=== PATIENT | male | born 1970 | race African-American/Black ===

== ENCOUNTER 2017-01-31 11:23 | Emergency (ER) | payer OTHER ==
[~2017-01-31] VITALS: Ht 177.8 cm; Wt 75.7 kg
[2017-01-31 11:40] VITALS: BP 121/80
[2017-01-31] MEDS ORDERED: AMOXICILLIN500 MG ORAL (11:42)
[2017-01-31] MEDS ORDERED: ACETAMINOPHEN-1 EAC1 ORAL (11:42)
[2017-01-31 11:47] VITALS: BP 136/67
--- NOTE | 2017-02-01 07:22 | Emergency Room Report ---
History of Present Illness General Chief Complaint: Pain Source: Patient Present Illness HPI 46-year-old male presents to ED complaining of tooth pain and facial pain x2 days. States while eating he felt immediate pain. Patient states he had swelling to his face initially which has been since resolved. Notes pain to his front tooth. 8/10, sharp, nonradiating. Denies fevers or chills. No other acute relieving factors. Denies any other associated symptoms Allergies: Coded Allergies: No Known Allergies (Unverified , 01/31/17) Patient History Past Medical History: none Past Surgical History: none Pertinent Family History: none Social History: Denies: alcohol use, drug use, smoking Immunizations: UTD Reviewed Nursing Documentation: PMH: Agreed, PSxH: Agreed Review of Systems All Other Systems: negative except mentioned in HPI Physical Exam Vital Signs Date Time Temp Pulse Resp B/P Pulse Ox O2 Delivery O2 Flow Rate FiO2 01/31/17 11:29 98.1 91 18 121/80 98 Room Air Sp02 EP Interpretation: reviewed, normal General Appearance: no apparent distress, alert, GCS 15, non-toxic Head: normocephalic Eyes: bilateral eye PERRL, bilateral eye normal inspection ENT: hearing grossly normal, normal pharynx, no angioedema, normal voice, TMs + canals normal, other - front tooth discoloration, pain Neck: full range of motion, supple/symm/no masses Respiratory: chest non-tender, lungs clear, normal breath sounds, speaking full sentences Cardiovascular #1: regular rate, rhythm, no edema Gastrointestinal: normal inspection Rectal: deferred Genitourinary: no CVA tenderness Musculoskeletal: normal inspection Neurologic: alert, oriented x3, responsive, motor strength/tone normal, sensory intact, speech normal Psychiatric: normal inspection Skin: normal inspection Lymphatic: normal inspection Medical Decision Making Diagnostic Impression: Primary Impression: Tooth pain ER Course 46year-old male presents ED complaining of tooth pain. differential - cracked tooth, dental abscess, cavity Patient placed on stretcher. After initial history, physical exam reveals a young male in mild distress. The front tooth is discolored but there is no pulp exposed. No surrounding abscess. No induration or swelling. Diagnosis- tooth pain Stable and discharged to home prescription for Tylenol #3 and amoxicillin. Instructed to see dentist as a walk-in this week. Return to ED if symptoms recur or worse Last Vital Signs Date Time Temp Pulse Resp B/P Pulse Ox O2 Delivery O2 Flow Rate FiO2 01/31/17 11:47 78 136/67 Room Air 01/31/17 11:40 98.1 18 98 Status: improved Disposition: HOME, SELF-CARE Condition: Stable Scripts Amoxicillin* (AMOXIL*) 500 Mg Capsule 500 MG ORAL THREE TIMES A DAY, #21 CAP Prov: EVA MAYBERRY M.D. 01/31/17 Acetaminophen With Codeine (T#3) (TYLENOL #3 TAB*) Y Tab 1 TAB ORAL Q8H Y for For Pain, #20 TAB Prov: EVA MAYBERRY M.D. 01/31/17 Referrals: [facility]ERR[facility] (PCP) Patient Instructions: Dental Pain, [id number] EVA MAYBERRY M.D. Feb 01, 2017 07:22
== END 2017-01-31 11:47 | disposition home or self-care (01) ==
LOC: EMR 11:45
DX: K08.89 Other specified disorders of teeth and supporting structures (principal)
CPT/HCPCS: 99284